=== PATIENT | male | born 1995 | race Caucasian/White ===

== ENCOUNTER 2024-04-01 09:22 | Emergency (ER) | payer SELFPAY ==
[2024-04-01 10:00] LABS: Absolute Eosinophils 0.3 K/uL (0-0.5); Absolute Lymphocytes (CBC) 2.4 K/uL (0.7-4.9); Absolute Monocytes 0.6 K/uL (0.1-1.3); Absolute Neutrophil 7.4 K/uL (1.8-8.0); Basophils % 0.4 % (0-1.3); Hematocrit 50.8 % (39.6-49.0); Hemoglobin 17.4 g/dL (13.6-17.9); Lymphocytes % 22.5 % (15.3-44.8); MCH 30.8 pg (27.0-35.0); MCHC 34.3 g/dL (32.0-36.0); MCV 89.9 fL (80-100); MPV 8.5 fL (7.6-11.3); Monocytes % 5.7 % (3.3-12.3); Neutrophils % 68.4 % (41.7-73.7); Nucleated Red Blood Cells % 0.2 % (0-0); Platelets 319 thou/uL (152-406); RBC Red Blood Cell Count 5.65 M/uL (4.33-5.43); Red Cell Distribution Width 12.9 % (12.1-15.2)
[2024-04-01 10:08] LABS: Specific Gravity > 1.030 (1.005-1.030); Sqamous Epithelial None Seen /HPF (None Seen); Urine Bacteria <20 /HPF (<20); Urine Bilirubin NEGATIVE (Negative); Urine Blood Trace (Negative); Urine Clarity Turbid (Clear); Urine Color Yellow (Yellow); Urine Culture Reflex Order NOT NEEDED; Urine Glucose NEGATIVE (Negative); Urine Ketones 1+ (Negative); Urine Microscopic Reflex YN ORDER UMIC; Urine Mucus 3+ /HPF (None Seen); Urine Nitrite NEGATIVE (Negative); Urine Protein 1+ (Negative); Urine Urobilinogen 1+ (Normal); Urine WBC <5 /HPF (<5); Urine pH 5.5 (5.0-7.0)
[2024-04-01 10:34] LABS: Albumin 4.4 g/dL (3.4-5.0); Albumin/Globulin Ratio 1.2 (1.1-1.8); Anion Gap 8.3 mEq/L (5.0-15.0); Bilirubin Total 0.7 mg/dL (0.2-1.0); Globulin 3.7 g/dL (2.3-3.5); Potassium 4.3 mEq/L (3.5-5.1); Protein, Total 8.1 g/dL (6.4-8.2)
--- NOTE | 2024-04-01 10:52 | EDPHYS ---
Physician Documentation [facility] Name: Samson Salazar Age: 28 yrs Sex: Male : 1995 Arrival Date: 04/01/2024 Time: 09:22 Bed IW10 Private MD: ED Physician Soren Sandoval HPI: 04/01 10:47 This 28 yrs old Male presents to ER via Ambulatory with complaints of Kidney Pain-over nell a year. 10:47 The patient complains of pain in the right mid back. The pain radiates to the right mid nell back. Onset: The symptoms/episode began/occurred 365 day(s) ago. Modifying factors: The symptoms are alleviated by nothing. the symptoms are aggravated by nothing. Associated signs and symptoms: The patient has no apparent associated signs or symptoms. Severity of pain: At its worst the pain was moderate in the emergency department the pain is unchanged. The patient has experienced similar episodes in the past, multiple times. Historical: - Allergies: 09:38 No Known Allergies; bp - Home Meds: 09:38 None [Active]; bp - PMHx: 09:38 None; bp - Immunization history:: Adult Immunizations up to date. - Infectious Disease History:: Denies. - Social history:: Smoking status: unknown. - Family history:: not pertinent. ROS: 10:47 Constitutional: Negative for fever, chills, and weight loss, Eyes: Negative for injury, nell pain, redness, and discharge, ENT: Negative for injury, pain, and discharge, Neck: Negative for injury, pain, and swelling, Cardiovascular: Negative for chest pain, palpitations, and edema, Respiratory: Negative for shortness of breath, cough, wheezing, and pleuritic chest pain, Abdomen/GI: Negative for abdominal pain, nausea, vomiting, diarrhea, and constipation, : Negative for injury, bleeding, discharge, and swelling, MS/Extremity: Negative for injury and deformity, Skin: Negative for injury, rash, and discoloration, Neuro: Negative for headache, weakness, numbness, tingling, and seizure, Psych: Negative for depression, anxiety, suicide ideation, homicidal ideation, and hallucinations, Allergy/Immunology: Negative for hives, rash, and allergies, Endocrine: Negative for neck swelling, polydipsia, polyuria, polyphagia, and marked weight changes, Hematologic/Lymphatic: Negative for swollen nodes, abnormal bleeding, and unusual bruising, 10:47 Back: Positive for pain at rest, flank pain, on the right, Exam: 10:47 Constitutional: This is a well developed, well nourished patient who is awake, alert, nell and in no acute distress. Head/Face: Normocephalic, atraumatic. Eyes: Pupils equal round and reactive to light, extra-ocular motions intact. Lids and lashes normal. Conjunctiva and sclera are non-icteric and not injected. Cornea within normal limits. Periorbital areas with no swelling, redness, or edema. ENT: Nares patent. No nasal discharge, no septal abnormalities noted. Tympanic membranes are normal and external auditory canals are clear. Oropharynx with no redness, swelling, or masses, exudates, or evidence of obstruction, uvula midline. Mucous membranes moist. Neck: Trachea midline, no thyromegaly or masses palpated, and no cervical lymphadenopathy. Supple, full range of motion without nuchal rigidity, or vertebral point tenderness. No Meningismus. Chest/axilla: Normal chest wall appearance and motion. Nontender with no deformity. No lesions are appreciated. Cardiovascular: Regular rate and rhythm with a normal S1 and S2. No gallops, murmurs, or rubs. Normal PMI, no JVD. No pulse deficits. Respiratory: Lungs have equal breath sounds bilaterally, clear to auscultation and percussion. No rales, rhonchi or wheezes noted. No increased work of breathing, no retractions or nasal flaring. Abdomen/GI: Soft, non-tender, with normal bowel sounds. No distension or tympany. No guarding or rebound. No evidence of tenderness throughout. Male : Normal genitalia with no discharge or lesions. Skin: Warm, dry with normal turgor. Normal color with no rashes, no lesions, and no evidence of cellulitis. MS/ Extremity: Pulses equal, no cyanosis. Neurovascular intact. Full, normal range of motion. Neuro: Awake and alert, GCS 15, oriented to person, place, time, and situation. Cranial nerves II-XII grossly intact. Motor strength 5/5 in all extremities. Sensory grossly intact. Cerebellar exam normal. Normal gait. Psych: Awake, alert, with orientation to person, place and time. Behavior, mood, and affect are within normal limits. 10:47 Back: pain, that is mild, ROM is normal, normal spinal alignment noted, CVA tenderness, that is mild, is noted on the right, Vital Signs: 09:37 BP 123 / 85; Pulse 90; Resp 16; Temp 98; Pulse Ox 99% ; bp MDM: 09:29 Medical Screening Exam initiated nell 10:49 Differential diagnosis: nephrolithiasis, pyelonephritis, UTI, diverticulitis, nell pancreatitis. Data reviewed: vital signs, nurses notes, lab test result(s). Consideration of Admission/Observation Escalation of care including admission/observation considered. I considered the following discharge prescriptions or medication management in the emergency department Medications were administered in the Emergency Department. See MAR. Test considered but Not performed: Ultrasound no renal usg. Care significantly affected by the following chronic conditions: none. 10:49 ED course: pt left immediately after labs and ct ordered. [facility] 04/01 09:34 Order name: CBC with Diff; Complete Time: 10:46 [facility] 04/01 09:34 Order name: Comprehensive Metabolic Panel; Complete Time: 10:46 [facility] 04/01 09:34 Order name: Urinalysis w/ reflexes; Complete Time: 10:46 [facility] Administered Medications: 09:54 Not Given (Patient Refused): ns 0.9% (20 ml/kg) 20 ml/kg IV at 1 bolus once; to be ll1 given as a bolus over 90 minutes Disposition Summary: 04/01/24 10:51 Discharge Ordered Notes: Location: Home nell Problem: new nell Symptoms: have improved nell Condition: Stable nell Diagnosis - Hematuria, unspecified nell - Abdominal pain, unspecified - RIGHT FLANK nell Followup: nell - With: Private Physician - When: Upon discharge from the Emergency Department - Reason: Recheck today's complaints, Continuance of care, Re-evaluation by your physician Followup: nell - With: Kimo Nair MD - When: 2 - 3 days - Reason: Recheck today's complaints, Re-evaluation by your physician Discharge Instructions: - Discharge Summary Sheet nell - Flank Pain, Adult nell - Hematuria, Adult nell - Kidney Stones nell - Kidney Stones, [id number] nell Forms: - Medication Reconciliation Form nell - Antibiotic Education nell - Prescription Opioid Use nell - Patient Portal Instructions nell - Leadership Thank You Letter nell Signatures: Dispatcher [employer] EDMS Soren Sandoval MD MD cha Peltier, Brian, RN RN bp Monae Long RN ll1 Corrections: (The following items were deleted from the chart) : 09:34 CBC+H.LAB.BRZ ordered. EDMS EDMS :34 09:34 COMPREHENSIVE METABOLIC PANEL+C.LAB.BRZ ordered. EDMS EDMS :34 09:34 Urinalysis+U.LAB.BRZ ordered. EDMS EDMS :35 09:35 Abdomen Pelvis W Con+CT.RAD.BRZ ordered. EDMS EDMS
--- NOTE | 2024-04-01 10:52 | ER ---
Nurse's Notes [facility] Name: Samson Salazar Age: 28 yrs Sex: Male : 1995 Arrival Date: 04/01/2024 Time: 09:22 Bed IW10 Private MD: Diagnosis: Hematuria, unspecified;Abdominal pain, unspecified-RIGHT FLANK Presentation: 04/01 09:37 Chief complaint: Patient states: R FLANK PAIN x1.5 YR, DX WITH 3MM KIDNEY STONE AT bp [place]. Coronavirus screen: At this time, the client does not indicate any symptoms associated with coronavirus-19. Ebola Screen: No symptoms or risks identified at this time. Initial Sepsis Screen: Does the patient meet any 2 criteria? No. Patient's initial sepsis screen is negative. Does the patient have a suspected source of infection? No. Patient's initial sepsis screen is negative. Risk Assessment: Do you want to hurt yourself or someone else? Patient reports no desire to harm self or others. Onset of symptoms is unknown. 09:37 Method Of Arrival: Ambulatory bp 09:37 Acuity: MIKEY 3 bp Triage Assessment: 09:38 General: Appears in no apparent distress. uncomfortable, Behavior is calm, cooperative, bp appropriate for age. Pain: Complains of pain in right flank. EENT: No deficits noted. Neuro: No deficits noted. Cardiovascular: No deficits noted. Respiratory: No deficits noted. GI: No signs and/or symptoms were reported involving the gastrointestinal system. : Reports pain in right flank(s). Derm: No deficits noted. Musculoskeletal: No deficits noted. Historical: - Allergies: 09:38 No Known Allergies; bp - Home Meds: 09:38 None [Active]; bp - PMHx: 09:38 None; bp - Immunization history:: Adult Immunizations up to date. - Infectious Disease History:: Denies. - Social history:: Smoking status: unknown. - Family history:: not pertinent. Screenin:55 [facility] ED Fall Risk Assessment (Adult) History of falling in the last 3 months, ll1 including since admission No falls in past 3 months (0 pts) Confusion or Disorientation No (0 pts) Intoxicated or Sedated No (0 pts) Impaired Gait No (0 pts) Mobility Assist Device Used No (0 pt) Altered Elimination No (0 pt) Score/Fall Risk Level 0 - 2 = Low Risk Maintained a safe environment, Hourly rounding (assess needs \T\ fall precautionary measures) done. Abuse screen: Denies threats or abuse. Nutritional screening: No deficits noted. Tuberculosis screening: No symptoms or risk factors identified. Assessment: 09:54 Reassessment: No changes from previously documented assessment. gait steady out of ED. ll1 10:00 Reassessment: PT LEAVING PRIOR TO DISPO. URGED TO STAY BY PROVIDER AND STAFF BUT bp DECLINED. PT INSTRUCTED TO RETURN IS S/S RETURN OR WORSEN. AO4, AMBULATORY WITH STEADY GAIT. Vital Signs: 09:37 BP 123 / 85; Pulse 90; Resp 16; Temp 98; Pulse Ox 99% ; bp ED Course: 09:24 Patient arrived in ED. mg5 09:29 Soren Sandoval MD is Attending Physician. [facility] 09:31 Called patient from [facility] with no answer . bc6 09:33 Missed attempt(s): 20 gauge in right antecubital area. Bleeding controlled, band aid bc6 applied, catheter tip intact. 09:35 Provided Education on: ER procedures and process. ll1 09:35 Initial lab(s) drawn, by la, sent to lab. Urine collected: clean catch specimen, christina bc6 colored. Inserted saline lock: 20 gauge in left antecubital area, using aseptic technique. Blood collected. Flushed with 10 mL NS. 09:38 Triage completed. bp 09:38 Arm band placed on. bp 09:51 Monae Long, RN is Primary Nurse. ll1 09:55 Patient has correct armband on for positive identification. ll1 09:55 Urinalysis w/ reflexes Sent. bc6 09:55 Comprehensive Metabolic Panel Sent. bc6 09:55 CBC with Diff Sent. bc6 09:55 No provider procedures requiring assistance completed. ll1 09:57 IV discontinued, intact, bleeding controlled, No redness/swelling at site. Pressure ll1 dressing applied. 10:50 Kimo Nair MD is Referral Physician. [facility] Administered Medications: :54 Not Given (Patient Refused): ns 0.9% (20 ml/kg) 20 ml/kg IV at 1 bolus once; to be ll1 given as a bolus over 90 minutes Medication: 10:57 VIS not applicable for this client. ll1 Outcome: :54 Discharged to home ambulatory, ll1 09:54 Condition: stable 09:54 Discharge instructions given to patient, Instructed on discharge instructions, follow up and referral plans. Demonstrated understanding of instructions, follow-up care, left without discharge instructions 10:51 Discharge ordered by MD. camejo 10:57 Patient left the ED. ll1 Signatures: Soren Sandoval MD MD cha Peltier, Brian, RN Monae Edgar RN RN 1 Maria A Oates 6 Kylie Norton 5
[2024-04-01 12:25] VITALS: BP 123/85; TEMP 98; O2SAT 99
== END 2024-04-01 10:57 | disposition home or self-care (01) ==
LOC: ER 09:22
DX: R31.9 Hematuria, unspecified (principal); R10.9 Unspecified abdominal pain
CPT/HCPCS: 36415; 80053; 81001; 85025; 99283